=== PATIENT | male | born 1955 | race Caucasian/White ===

== ENCOUNTER 2019-05-25 08:06 | Outpatient (CLI) | payer OTHER, SELFPAY ==
[2019-05-25 08:29] LABS: Basophils Absolute Auto 0.03 K/mm3 (0.00-0.10); Basophils Percent Auto 0.7 % (0.0-1.0); Eosinophils Percent Auto 2.4 % (1.0-6.0); Hematocrit 37.2 % (40.0-54.0); Hemoglobin 12.6 g/dL (14.0-18.0); Immature Granulocyte Absolute 0.01 K/mm3 (0.00-0.00); Immature Granulocyte Percent A 0.2 % (0.0-0.0); Lymphocytes Absolute Auto 0.57 K/mm3 (1.10-4.50); Lymphocytes Percent Auto 13.4 % (18.0-42.0); Mean Corpuscular HGB Conc 33.9 g/dL (32.0-36.0); Mean Corpuscular Hemoglobin 32.2 pg (27.0-31.0); Mean Corpuscular Volume 95.1 fL (78.0-102.0); Mean Platelet Volume 8.9 fl (8.7-11.0); Monocytes Absolute Auto 0.51 K/mm3 (0.10-0.90); Neutrophils Percent Auto 71.3 % (50.0-70.0); Platelet Count Result 189 K/mm3 (150-420); Red Blood Count 3.91 M/mm3 (4.70-6.10); Red Cell Distribution Width 14.6 % (11.6-14.4); White Blood Count 4.2 K/mm3 (4.8-10.8)
[2019-05-25 08:34] VITALS: BP 128/64; PULSE 78; RESP 16; TEMP 36.6; O2SAT 98
[2019-05-25 08:47] LABS: Alanine Aminotransferase 21 U/L (16-63); Albumin Level 3.5 g/dL (3.4-5.0); Alkaline Phosphatase 59 U/L (46-116); Anion Gap 10.2 mmol/L (7-16); Aspartate Amino Transferase 18 U/L (15-37); Bilirubin,Total 0.6 mg/dL (0.00-1.00); Blood Urea Nitrogen 28 mg/dL (7-18); Calcium 8.4 mg/dL (8.5-10.1); Carbon Dioxide 28 mmol/L (21-32); Chloride 110 mmol/L (98-108); Estimated Glomerular Filt Rate > 60; Glucose 83 mg/dL (70-99); Osmolality Calculated 302 mOsm/kg (285-295); Potassium 4.2 mmol/L (3.5-5.1); Sodium 144 mmol/L (136-145)
[2019-05-25] MEDS: SODIUM CHLORIDE 0.9% IV 250 ML 40 ML IVPB (09:39)
[2019-05-25] MEDS: FAMOTIDINE 20 MG/ISO 50 ML 20 MG/50 ML BAG 150 MG IVPB (09:42)
[2019-05-25] MEDS: FOSAPREPITANT DIMEGLUMINE 150 MG in SODIUM CHLORIDE 0.9% IV 150 ML 450 MG IVPB (10:18)
[2019-05-25] MEDS: ATROPINE SULFATE 1 MG/10 ML SYRINGE 0.4 MG IV PUSH (10:44)
[2019-05-25] MEDS: FLUOROURACIL 2,500 MG/50 ML VIAL 700 MG IV PUSH (13:23)
[2019-05-25 13:37] VITALS: BP 123/61; PULSE 64; RESP 18; TEMP 36.6; O2SAT 97
--- NOTE | 2019-05-25 13:50 | PC.NURSE ---
Patient here for biweekly FOLFIRI WITH BEVACIZUMAB CHEMO. All concerns answered. Blood work reviewed. Proceed with chemo. Chemo administered see MAR. Patient tolerated chemo well. Patient discharge with chemo 5Fu on take home pump. Will come back in 46 hours for pump removal. Safe exit of hospital.
--- NOTE | 2019-05-25 13:53 | PC.NURSE ---
Patient here for biweekly FOLFIRI With Bevacizumab. All concerns and teaching reinforced. Patient with no further concerns. Blood work reviewed. Proceed with chemo. Chemo administered as ordered {See MAR}/ Tolerated chemo well. Patient discharge with 5Fu take home infusion on pump for next 46 hours. Will be back for pump removal, Thursday05/27/19. Port needle intact and asystomatic of s/sx of infection etc. Safe exit of hospital.
== END 2019-05-25 08:07 | disposition home or self-care (01) ==
PROVIDERS: PCP Family Medicine; Visit Provider Internal Medicine Hematology & Oncology
DX: Z51.11 Encounter for antineoplastic chemotherapy (principal); C18.9 Malignant neoplasm of colon, unspecified
CPT/HCPCS: 36415; 80053; 85025; 96365; 96366; 96367; 96368; 96374; 96375; 96411; 96413; 96415; 96416; 96417; J0461; J0640; J1100; J1200; J1453; J2405; J7050; J9035; J9190; J9206

== ENCOUNTER 2019-06-08 08:05 | Outpatient (CLI) | payer OTHER, SELFPAY ==
[2019-06-08 08:30] VITALS: BP 143/59; PULSE 78; RESP 14; TEMP 36.5; O2SAT 97
[2019-06-08] MEDS: SODIUM CHLORIDE 0.9% IV 250 ML 30 ML IVPB (09:14)
[2019-06-08] MEDS: FAMOTIDINE 20 MG/ISO 50 ML 20 MG/50 ML BAG 150 MG IVPB (09:16)
--- NOTE | 2019-06-08 09:21 | PC.NURSE ---
16 Pepcid IVPB 20 mg started infusion at 915 and stopped 935.
--- NOTE | 2019-06-08 09:23 | PCDIET ---
Patient here for chemo therapy FOLFIRI WITH BEVACIZUMAB. No concerns voiced. Patient stated had Normal Saline infusion at [facility] last week r/t hydration and feeling ran down. But, patient reports fells much better this week. Labs kim on Thursday at [place] received and reviewed. Ok to proceed with Chemo this week.
[2019-06-08] MEDS: FOSAPREPITANT DIMEGLUMINE 150 MG in SODIUM CHLORIDE 0.9% IV 150 ML 450 MG IVPB (09:53)
[2019-06-08] MEDS: ATROPINE SULFATE 1 MG/ML VIAL 0.4 MG IV PUSH (10:22)
--- NOTE | 2019-06-08 12:11 | PC.NURSE ---
1155 Patient tolerated Bevacizumab well last two infusions. Per order may give Bevacizumab over 30 minutes if tolerated ones before. see order. Bevacizumab administered over 30 minutes. see mar.
[2019-06-08] MEDS: FLUOROURACIL 500 MG/10 ML VIAL 700 MG IV PUSH (12:36)
[2019-06-08 12:43] VITALS: BP 118/59; PULSE 76; RESP 16; TEMP 36.6; O2SAT 97
--- NOTE | 2019-06-08 12:47 | PC.NURSE ---
1245 Chemo administered see jun. 5fu on home infusion pump started. Patient will return Thursday06/10/19 for 1045 for pump removal and port flush. Patient tolerating chemo well. Safe exit of hospital.
--- NOTE | 2019-06-10 10:59 | PC.NURSE ---
06/10/19 1035 Patient back for chemo pump removal. Chemo pump removed. Port flushed with 10 ml normal saline and Heparin lock flush 500 units. Site asystomatic of s/sx of infection. Patient states, I did well this time so far . No concerns. Safe exit of hospital. Pump returned to pharmacy. Patient to return on 06/22/2019 for next chemo treatment.
== END 2019-06-08 08:06 | disposition home or self-care (01) ==
LOC: CHSTREATRM 08:08
PROVIDERS: PCP Family Medicine; Visit Provider Internal Medicine Hematology & Oncology
DX: Z51.11 Encounter for antineoplastic chemotherapy (principal); C18.9 Malignant neoplasm of colon, unspecified
CPT/HCPCS: 96367; 96368; 96375; 96411; 96413; 96415; 96416; 96417; J0461; J0640; J1100; J1200; J1453; J2405; J7050; J9035; J9190; J9206

== ENCOUNTER 2019-06-22 08:12 | Outpatient (CLI) | payer OTHER, SELFPAY ==
[2019-06-22 08:31] VITALS: BP 130/88; PULSE 78; RESP 14; TEMP 36.6; O2SAT 97
--- NOTE | 2019-06-22 08:33 | PC.NURSE ---
Here for cycle 7 of 12 of FOLFIRI WITH Bevacizumab chemo. All concerns answered. Labs kim in [place]. Labs reviewed. OK proceed with chemo. Port accessed. see worklist.
[2019-06-22] MEDS: SODIUM CHLORIDE 0.9% IV 250 ML 30 ML IVPB (09:00)
[2019-06-22] MEDS: FAMOTIDINE 20 MG/ISO 50 ML 20 MG/50 ML BAG 150 MG IVPB (09:03)
[2019-06-22] MEDS: FOSAPREPITANT DIMEGLUMINE 150 MG in SODIUM CHLORIDE 0.9% IV 150 ML 450 MG IVPB (09:49)
[2019-06-22] MEDS: ATROPINE SULFATE 1 MG/ML VIAL 0.4 MG IV PUSH (10:14)
[2019-06-22] MEDS: FLUOROURACIL 2,500 MG/50 ML VIAL 700 MG IV PUSH (12:30)
[2019-06-22 12:48] VITALS: BP 140/59; PULSE 64; RESP 14; TEMP 36.4; O2SAT 98
--- NOTE | 2019-06-22 12:51 | PC.NURSE ---
Tolerated chemo infusion well. 5FU infusion on take home pump started and will continue for next 46 hours. Patient will return Thursday around 1030 a.m. for pump removal. Safe exit of hospital.
== END 2019-06-22 08:13 | disposition home or self-care (01) ==
PROVIDERS: PCP Family Medicine; Visit Provider Internal Medicine Hematology & Oncology
DX: Z51.11 Encounter for antineoplastic chemotherapy (principal); C18.9 Malignant neoplasm of colon, unspecified
CPT/HCPCS: 96367; 96375; 96411; 96413; 96415; 96417; J0461; J0640; J1100; J1200; J1453; J2405; J7050; J9035; J9190; J9206

== ENCOUNTER 2019-08-09 08:07 | Outpatient (CLI) | payer OTHER, SELFPAY ==
[2019-08-09 08:34] VITALS: PULSE 80; RESP 14; TEMP 36.6; O2SAT 98
[2019-08-09] MEDS: SODIUM CHLORIDE 0.9% IV 250 ML 30 ML IVPB (08:48)
[2019-08-09] MEDS: FAMOTIDINE 20 MG/ISO 50 ML 20 MG/50 ML BAG 150 MG IVPB (08:48)
[2019-08-09] MEDS: FOSAPREPITANT DIMEGLUMINE 150 MG in SODIUM CHLORIDE 0.9% IV 150 ML 450 MG IVPB (09:25)
[2019-08-09] MEDS: ATROPINE SULFATE 1 MG/10 ML SYRINGE 0.4 MG IV PUSH (09:50)
[2019-08-09] MEDS: FLUOROURACIL 1,000 MG/20 ML VIAL 700 MG IV PUSH (11:57)
[2019-08-09 12:15] VITALS: BP 129/65; PULSE 78; RESP 14; TEMP 36.6; O2SAT 97
--- NOTE | 2019-08-09 13:03 | PC.NURSE ---
PATIENT HERE FOR FOLFIRI WITH BEVACIZUMAB CYCLE 8 OF 12. NO CONCERNS VOICED. REVIEWED CHEMO REGIMEN WITH ANAT WITH FULL UNDERSTANDING. CHEMO ADMINISTERED. TOLERATED WELL. SAFE EXIT OF HOSPITAL WITH HOME PUMP 5 FU CHEMO INFUSION. WILL RETURN THURSDAY TO GET PUMP OFF.
--- NOTE | 2019-08-13 10:02 | PC.NURSE ---
08/11/2019 1005 Patient return to get chemo pump removed and port flushed. No concerns voiced. Chemo medication and port flushed performed by Patricia Stone RN. Safe exit of hospital.
== END 2019-08-09 08:08 | disposition home or self-care (01) ==
LOC: CHSTREATRM 08:10
PROVIDERS: PCP Family Medicine; Visit Provider Internal Medicine Hematology & Oncology
DX: Z51.11 Encounter for antineoplastic chemotherapy (principal); C18.9 Malignant neoplasm of colon, unspecified
CPT/HCPCS: 96367; 96375; 96409; 96413; 96416; 96417; J0461; J0640; J1100; J1200; J1453; J2405; J7050; J9035; J9190; J9206

== ENCOUNTER 2019-08-30 08:11 | Outpatient (CLI) | payer OTHER, SELFPAY ==
[2019-08-30 08:35] VITALS: BP 124/66; PULSE 68; RESP 16; TEMP 37; O2SAT 97
[2019-08-30] MEDS: SODIUM CHLORIDE 0.9% IV 250 ML 50 ML IVPB (09:40)
[2019-08-30] MEDS: FAMOTIDINE 20 MG/ISO 50 ML 20 MG/50 ML BAG 100 MG IVPB (10:15)
--- NOTE | 2019-08-30 10:17 | PC.NURSE ---
PT TO ROOM 229 AMB PER SELF. A&OX3. HAS NO QUESTIONS OR CONCERNS. OREINTED TO ROOM. CALL SORENSEN IN REACH. REMINDED TO CALL WITH NEEDS.
[2019-08-30] MEDS: FOSAPREPITANT DIMEGLUMINE 150 MG in SODIUM CHLORIDE 0.9% IV 150 ML 450 MG IVPB (10:55)
[2019-08-30] MEDS: ATROPINE SULFATE 1 MG/10 ML SYRINGE 0.4 MG IV PUSH (11:35)
[2019-08-30] MEDS: FLUOROURACIL 2,500 MG/50 ML VIAL 700 MG IV PUSH (13:25)
--- NOTE | 2019-08-30 15:14 | PC.NURSE ---
ALL MEDICATIONS INFUSED ORDERED. PT TOLERATED WELL. PT HAS NO QUESTIONS, COMPLAINTS OR CONCERNS. FLUOROURACIL TAKE HOME PUMP CONNECTED. PT REMINDED TO COME BACK IN 46 HOURS TO HAVE PUMP REMOVED. TAKEN TO PARKING LOT PER WC TO CAR WITH FRIEND TO DRIVE HIM HOME.
== END 2019-08-30 08:12 | disposition home or self-care (01) ==
LOC: CHSTREATRM 08:13
PROVIDERS: PCP Family Medicine; Visit Provider Internal Medicine Hematology & Oncology
DX: Z51.11 Encounter for antineoplastic chemotherapy (principal); C18.9 Malignant neoplasm of colon, unspecified
CPT/HCPCS: 96367; 96368; 96375; 96411; 96413; 96415; 96416; 96417; J0461; J0640; J1100; J1200; J1453; J2405; J7050; J9035; J9190; J9206

== ENCOUNTER 2019-10-11 08:08 | Outpatient (CLI) | payer OTHER, SELFPAY ==
--- NOTE | 2019-10-11 08:30 | PC.NURSE ---
Pt to room 201 amb per self. A&Ox3. Has no questions or concerns. Oriented to room. Call doherty in reach. Reminded to call with needs. Awaiting lab results from [facility].
[2019-10-11 09:30] VITALS: BP 140/62; PULSE 60; RESP 20; TEMP 36.7; O2SAT 98
[2019-10-11] MEDS: SODIUM CHLORIDE 0.9% IV 250 ML 10 ML IVPB (10:02)
[2019-10-11] MEDS: FAMOTIDINE 20 MG/ISO 50 ML 20 MG/50 ML BAG 150 MG IVPB (10:03)
--- NOTE | 2019-10-11 10:44 | PC.NURSE ---
Pt remains up in chair, playing on phone. Has no questions or complaints. Reminded to call with needs.
[2019-10-11] MEDS: ATROPINE SULFATE 1 MG/10 ML SYRINGE 0.4 MG IV PUSH (11:10)
[2019-10-11] MEDS: IRINOTECAN HCL IVPB (11:21)
[2019-10-11] MEDS: SODIUM CHLORIDE 0.9% IVPB (11:21)
--- NOTE | 2019-10-11 11:31 | PC.NURSE ---
All premeds infused. Chemotherapy started. Pt resting in chair without complaint.
--- NOTE | 2019-10-11 12:58 | PC.NURSE ---
pt up to br to void per self. has no complaints. reminded to call with needs. chemo infusing as ordered.
--- NOTE | 2019-10-11 14:00 | PC.NURSE ---
Pt resting in chair. No distress noted.
[2019-10-11] MEDS: HEPARIN SOD FLUSH 500 UNITS/5 ML SYRINGE IV PUSH (14:58)
--- NOTE | 2019-10-11 15:05 | PC.NURSE ---
All medications given as ordered. Pt tolerated well. Has no questions or complaints. d
--- NOTE | 2019-10-11 15:05 | PC.NURSE ---
Pt discharged to home ambulatory to friend waiting in parking lot.
== END 2019-10-11 08:09 | disposition home or self-care (01) ==
PROVIDERS: PCP Family Medicine; Visit Provider Internal Medicine Hematology & Oncology
DX: Z51.11 Encounter for antineoplastic chemotherapy (principal); C19 Malignant neoplasm of rectosigmoid junction
CPT/HCPCS: 96365; 96367; 96368; 96374; 96375; 96413; 96415; 96417; J0461; J1100; J1200; J2405; J7050; J9055; J9206

== ENCOUNTER 2019-12-02 08:04 | Outpatient (CLI) | payer OTHER, SELFPAY ==
[2019-12-02 08:20] VITALS: BP 121/67; PULSE 64; RESP 14; TEMP 36.3; O2SAT 98
[2019-12-02] MEDS: FAMOTIDINE 20 MG/ISO 50 ML 20 MG/50 ML BAG 100 MG IVPB (08:48)
[2019-12-02] MEDS: diphenhydrAMINE HCl INJ 50 MG/ML VIAL 25 MG IV PUSH (08:48)
[2019-12-02] MEDS: SODIUM CHLORIDE 0.9% IV 250 ML 10 ML IVPB (08:49)
[2019-12-02] MEDS: ATROPINE SULFATE 1 MG/10 ML SYRINGE 0.4 MG IV PUSH (12:10)
[2019-12-02 13:55] VITALS: BP 106/59; PULSE 68; RESP 12; TEMP 36.6; O2SAT 98
--- NOTE | 2019-12-02 13:56 | PC.NURSE ---
0800 Patient here for cycle 1 of Irinotecan every 14 days + Cetuximab chemo infusion. Patient has been on hold for 4 weeks for reaction - rash with the Cetuximab. Ok per Dr. Martin to start up again. Saw Dr. Martin yesterday in [facility] ok labs ok to proceed today. All teaching of drugs reinforced. Patient has understanding and no other concerns. Chemo administered. Tolerated it well. 1065 Safe exit of hospital.
[2019-12-02] MEDS: HEPARIN SOD FLUSH 500 UNITS/5 ML SYRINGE IV PUSH (14:03)
== END 2019-12-02 08:05 | disposition home or self-care (01) ==
LOC: CHSTREATRM 08:05
PROVIDERS: PCP Family Medicine; Visit Provider Internal Medicine Hematology & Oncology
DX: Z51.11 Encounter for antineoplastic chemotherapy (principal); C19 Malignant neoplasm of rectosigmoid junction
CPT/HCPCS: 96367; 96375; 96413; 96415; 96417; J0461; J1100; J1200; J2405; J7050; J9055; J9206

== ENCOUNTER 2020-10-13 01:30 | Outpatient (CLI) | payer OTHER, SELFPAY ==
--- NOTE | ~2020-10-13 | CT_ITS ---
EXAMINATION: CT abdomen pelvis w con DATE: 10/13/2020 02:38 INDICATION: Stricture of colon cancer TECHNIQUE: Computed tomography (CT) of the abdomen and pelvis was performed with 100 cc Omnipaque 350 intravenous contrast. The dose-length product was 354.78 mGy-cm. Automated exposure control and iter ative reconstruction technique were employed. COMPARISON: None. FINDINGS: Moderate right pleural effusion. Small left pleural effusion. Moderate pericardial effusion . There is ascites. There is a left lower quadrant colostomy. There is scattered fluid filled loops o f bowel, nonspecific. No definite obstruction or free air. Partial visualization of the rectal stump grossly unremarkable. There are multiple hypovascular lesions of the liver, consistent with metastati c disease. There is periportal and celiac lymph node lymphadenopathy, consistent with extrahepatic in volvement of metastatic disease. There is periportal lucency/edema. Gallbladder is decompressed. Maegan cholecystic fluid is presumed extension of ascites. There are calcified granulomas of the spleen. The pancreas, adrenal glands and kidneys are unremarkable. Bladder is grossly unremarkable. No lytic or blastic lesions are seen. No acute osseous abnormality. There is diffuse subcutaneous edema, consiste nt with anasarca. Enhancing nodule right lateral abdominal soft tissues in the subcostal region measu ring 9 mm which may represent reactive lymph node or subcutaneous metastatic disease. IMPRESSION: 1. Multiple hypovascular masses of the liver, consistent with metastatic disease. Presumed metastases to the periportal and celiac lymph nodes. 2: Bilateral pleural and pericardial effusions. Diffuse subcutaneous edema and edema, consistent with anasarca. Moderate ascites. 3: Enhancing soft tissue nodule right lateral abdominal wall measuring 9 mm, reactive lymph node vers us subcutaneous metastatic disease. Reviewed, dictated and finalized at location A. IMPRESSION: 1. Multiple hypovascular masses of the liver, consistent with metastatic diseas e. Presumed metastases to the periportal and celiac lymph nodes. 2: Bilateral pleural and pericardial effusions. Diffuse subcutaneous edema and edema, consistent with anasarca. Moderate ascites. 3: Enhancing soft tissue nodule right lateral abdominal wall measuring 9 mm, re active lymph node versus subcutaneous metastatic disease.
== END 2020-10-13 01:31 | disposition home or self-care (01) ==
LOC: CHSIMG 01:38
DX: R10.32 Left lower quadrant pain (principal); Z85.038 Personal history of other malignant neoplasm of large intestine
CPT/HCPCS: 74177; Q9967